=== PATIENT | female | born 1980 | race Caucasian/White ===

== ENCOUNTER 2017-12-22 21:53 | Emergency (ER) | payer OTHER ==
[2017-12-22] MEDS ORDERED: SODIUM CHLORIDE 1,000 ML IV STA (22:10)
--- NOTE | 2017-12-22 22:10 | PDOC ---
ED Treatment Course - LABORATORY CBC & Chemistry Diagram: 12/23/17 02:00 Medical Decision Making - Medical Decision Making 12/22/17 22:10 Ms Anna is a 37 yo female s/p chemical for demise at 9 weeks gestation p/w light bleeding for the past 5 - days. Today patient soaking multiple pads since 8pm passing large clots with severe abdominal cramping. Pt seen by Midlevel Provider under my direct supervision Laboratory Tests 12/22/17 12/22/17 12/22/17 22:11 22:11 22:11 Hgb 11.6 Hct 35.9 Beta HCG, Quant 7214.4 Blood Type A POSITIVE 12/23/17 02:00 Hgb 10.2 L Hct 32.1 L Beta HCG, Quant Blood Type Ancillary studies reviewed Pt needs to follow up with OB who is following her I agree with plan as outlined by Midlevel Provider *DC/Admit/Observation/Transfer Diagnosis at time of Disposition: Miscarriage - Discharge Dispostion Disposition: HOME - Referrals - Patient Instructions Printed Discharge Instructions: DI for Miscarriage Additional Instructions: drink plenty of fluids start iron supplements please follow up with your deputy clerk of superior court today. Additional Instructions: * Please call your personal physician to report your Emergency Department visit and to report your progress, if any. * If there is no improvement in symptoms in 2 days call your physician. * Return to the Emergency Department for any worsening symptoms. - Post Discharge Activity Forms/Work/School Notes: Back to Work
--- NOTE | 2017-12-22 22:10 | PDOC ---
History of Present Illness - General Chief Complaint: Vaginal Bleeding Stated Complaint: VAGINAL BLEEDING, MISCARRIGE Time Seen by Provider: 12/22/17 22:09 History Source: Patient - History of Present Illness Initial Comments: 12/22/17 22:29 37 year old female s/p chemical for demise at 9 weeks gestation 6 days ago reports light bleeding since then. today patient soaking multiple pads since 8pm passing large clots with severe abdominal cramping. 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 Loss, Unexplained wgt Loss, Other ABD/GI: Yes: Abdominal cramping. No: Symptoms Reported, See HPI, Abdominal Distended, Abd. Pain w/ defecation, Blood Streaked Bowels, Constipated, Diarrhea , Difficulty Swallowing, Nausea, Poor Appetite, Poor Fluid Intake, Rectal Bleeding, Vomiting, Indigestion, Tarry Stools, Other : Yes: Other (vaginal bleeding) *Physical Exam - Vital Signs 12/23/17 02:54 Last Vital Signs Temp Pulse Resp BP Pulse Ox 97.7 F 82 17 104/77 100 12/23/17 02:34 12/23/17 02:34 12/23/17 02:34 12/23/17 02:34 12/23/17 02:34 - Physical Exam General Appearance: Yes: Moderate Distress Female Pelvic Exam: positive: vaginal bleeding (copious with large clots. unable to visualize the os) Extremity: positive: Normal Capillary Refill, Normal Inspection, Normal Range of Motion ED Treatment Course - LABORATORY CBC & Chemistry Diagram: 12/23/17 02:00 Progress Note - Progress Note Progress Note: A: miscarriage; vaginal bleeding P: labs Type and screen: A+ Ua TVUS Medical Decision Making - Medical Decision Making 12/23/17 01:20 pain is under control. patient is vomiting likely from morphine side effect. 12/23/17 01:[address] holland who recommends outpatient follow up with Dr. 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 no acute surgical intervention at this time as US shows heterogeneous complex appearing material within the lower uterine segment and endocervical canal. " this is most liekly represents products of conception being expelled. 12/23/17 02:51 repeat CBC 10.1.vaginal bleeding has slowed down. will d/c home. pain is under control 12/23/17 02:54 *DC/Admit/Observation/Transfer Diagnosis at time of Disposition: Miscarriage - Referrals - Patient Instructions Printed Discharge Instructions: DI for Miscarriage Additional Instructions: drink plenty of fluids start iron supplements please follow up with your pipe smoking machine offbearer today. Additional Instructions: * Please call your personal physician to report your Emergency Department visit and to report your progress, if any. * If there is no improvement in symptoms in 2 days call your physician. * Return to the Emergency Department for any worsening symptoms. - Post Discharge Activity Forms/Work/School Notes: Back to Work
[2017-12-22 22:18] VITALS: BMI 33.0
[2017-12-22 22:26] LABS: BASO % 0.4 % (0-2.0); EOS % 1.6 % (0-4.5); HEMATOCRIT 35.9 % (32.4-45.2); HEMOGLOBIN 11.6 GM/dL (10.7-15.3); LYMPH % 29.6 % (8-40); MCH 25.9 pg (25.7-33.7); MCHC 32.3 g/dl (32.0-36.0); MEAN CELL VOLUME 80.1 fl (80-96); MEAN PLT VOLUME 8.3 fl (7.5-11.1); MONO % 9.5 % (3.8-10.2); NEUT % 58.9 % (42.8-82.8); PLATELET COUNT 222 K/MM3 (134-434); RBC 4.49 M/mm3 (3.60-5.2); WHITE BLOOD COUNT 7.4 K/mm3 (4.0-10.0)
[2017-12-22] MEDS ORDERED: morphine SULFATE 4 MG/ML VIAL IVPUSH ONE (22:26)
[2017-12-22 22:40] LABS: INR 1.09 (0.83-1.09); PROTHROMBIN TIME (PATIENT) 12.9 SEC (9.7-13.0)
[2017-12-22] MEDS ORDERED: morphine SULFATE 4 MG/ML VIAL ONE (22:42)
[2017-12-22] MEDS ORDERED: KETOROLAC TROMETHAMINE 30 MG/1 ML VIAL IVPUSH ONE (23:17)
[2017-12-22] MEDS ORDERED: KETOROLAC TROMETHAMINE 30 MG/1 ML VIAL ONE (23:30)
[2017-12-22] MEDS ORDERED: SODIUM CHLORIDE 1,000 ML IV SCH (23:45)
[2017-12-22] MEDS ORDERED: HYDROmorphone HCL CARPU-JECT 2 MG/1 ML DISP.SYRIN IVPUSH ONE (23:48)
[2017-12-23] MEDS ORDERED: HYDROmorphone HCl 2 MG/ML VIAL ONE (00:01)
[2017-12-23] MEDS ORDERED: ONDANSETRON 4 MG/2 ML VIAL IVPB ONE (01:16)
[2017-12-23] MEDS ORDERED: ONDANSETRON 4 MG/2 ML VIAL ONE (01:43)
[2017-12-23] MEDS ORDERED: METOCLOPRAMIDE HCL INJECTION 10 MG/2 ML VIAL IVPB ONE (02:38)
[2017-12-23 02:41] LABS: BASO % 0.1 % (0-2.0); EOS % 0.1 % (0-4.5); HEMATOCRIT 32.1 % (32.4-45.2); HEMOGLOBIN 10.2 GM/dL (10.7-15.3); LYMPH % 8.2 % (8-40); MCH 25.6 pg (25.7-33.7); MCHC 31.7 g/dl (32.0-36.0); MEAN CELL VOLUME 80.7 fl (80-96); MEAN PLT VOLUME 8.7 fl (7.5-11.1); MONO % 4.4 % (3.8-10.2); NEUT % 87.2 % (42.8-82.8); PLATELET COUNT 174 K/MM3 (134-434); RBC 3.98 M/mm3 (3.60-5.2); RDW 13.8 % (11.6-15.6); WHITE BLOOD COUNT 9.4 K/mm3 (4.0-10.0)
[2017-12-23] MEDS ORDERED: METOCLOPRAMIDE HCL INJECTION 10 MG/2 ML VIAL ONE (03:57)
[2017-12-23 04:45] VITALS: BP 109/70; PULSE 76; TEMP 98.4
--- NOTE | 2017-12-28 15:53 | PATH ---
Surgical Pathology Report Patient Name: KAREL SANCHEZ Med. Rec. #: [id number] /Age/Gender: 1980 (Age: 37) / F Account: [id number] Location: EMERGENCY ROOM Taken: 12/22/2017 Received: 12/23/2017 Reported: 12/28/2017 Physicians: PHYSICIAN EMERGENCY DEPT Specimen(s) Received PRODUCTS OF CONCEPTION Clinical History Miscarriage Final Diagnosis PRODUCTS OF CONCEPTION, DELIVERY: RARE VILLOUS TISSUE IN A HEMORRHAGIC BACKGROUND CONSISTENT WITH PRODUCTS OF CONCEPTION. Electronically Signed Kimberley Coronado M.D. Gross Description Received fresh labeled with the patient's name and indicated on the requisition to be products of conception, is a 14.0 x 11.0 x 2.0 cm aggregate of red-brown blood clot, possibly containing soft tissue. No definite villous tissue or somatic tissue is identified. A medical center representative portion is submitted in 3 cassettes. /12/23/2017 saudi/12/23/2017
== END 2017-12-23 05:02 | disposition home or self-care (01) ==
LOC: JER 21:53
PROC: 3E0337Z Introduction of Electrolytic and Water Balance Substance into Peripheral Vein, Percutaneous Approach (ICD-10-PCS; principal; 2017-12-22)
PROC: 3E033GC Introduction of Other Therapeutic Substance into Peripheral Vein, Percutaneous Approach (ICD-10-PCS; 2017-12-22)
PROC: 3E033GC Introduction of Other Therapeutic Substance into Peripheral Vein, Percutaneous Approach (ICD-10-PCS; 2017-12-22)
PROC: 3E033NZ Introduction of Analgesics, Hypnotics, Sedatives into Peripheral Vein, Percutaneous Approach (ICD-10-PCS; 2017-12-22)
PROC: 3E033NZ Introduction of Analgesics, Hypnotics, Sedatives into Peripheral Vein, Percutaneous Approach (ICD-10-PCS; 2017-12-22)
PROC: 3E0333Z Introduction of Anti-inflammatory into Peripheral Vein, Percutaneous Approach (ICD-10-PCS; 2017-12-22)
DX: O03.1 Delayed or excessive hemorrhage following incomplete spontaneous abortion (principal)
CPT/HCPCS: 36415; 76817-TC; 84702; 85025; 85610; 86850; 86900; 86901; 88305-TC; 99284-25; J7030